=== PATIENT | female | born 1980 | race Caucasian/White ===

== ENCOUNTER 2023-10-27 16:05 | Outpatient (REF) | payer OTHER, SELFPAY ==
[2023-10-27 16:45] LABS: MANUAL DIFF FLAG NO
[2023-10-27 18:01] LABS: Basophils Absolute Auto 0.1 X10*3/uL (0.0-0.2); Basophils Percent Auto 1.1 % (0-2); Eosinophils Absolute Auto 0.4 X10*3/uL (0.0-0.4); Eosinophils Percent Auto 3.5 % (0-4); Hematocrit 38.8 % (37.0-47.0); Hemoglobin 12.4 g/dl (12.0-16.0); Imm Gran Abs Auto 0.04 X10*3/uL (0.00-0.03); Imm Gran Pct Auto 0.4 % (0.0-0.4); Lymphocytes Absolute Auto 2.1 X10*3/uL (1.2-4.9); Lymphocytes Percent Auto 20.4 % (20-40); Mean Corpuscular Hemoglobin 27.7 pg (27.0-33.0); Mean Corpuscular Volume 86.6 fL (80.0-98.0); Mean Platelet Volume 10.3 fL (9.4-12.3); Monocytes Absolute Auto 0.9 X10*3/uL (0.1-1.2); Monocytes Percent Auto 8.1 % (2-11); Neutrophils Percent Auto 66.5 % (45-73); Platelet Count 397 X10*3/uL (160-400); Red Blood Count 4.48 X10*6/uL (4.20-5.50); Red Cell Distribution Width 14.6 % (11.0-16.0); White Blood Count 10.5 X10*3/uL (4.8-10.8)
[2023-10-27 18:39] LABS: Alanine Aminotransferase 12 U/L (0-31); Albumin Level 4.4 g/dL (3.5-5.0); Alkaline Phosphatase 83 U/L (39-117); Aspartate Amino Transferase 14 U/L (5-31); Bilirubin Direct 0.3 mg/dL (0.0-0.5); Bilirubin Total 0.6 mg/dL (0.0-1.0); C Reactive Protein < 0.10 mg/dL (< or = 0.50); Lipase 27 U/L (8-78); Total Protein 7.4 g/dL (6.5-8.0)
[2023-10-27 18:46] LABS: Erythrocyte Sedimentation Rate 13 MM/HR (0-20)
== END 2023-10-27 16:06 | disposition home or self-care (01) ==
LOC: HO.LAB 16:05
PROVIDERS: PCP Internal Medicine; Visit Provider Internal Medicine Gastroenterology
DX: R10.11 Right upper quadrant pain (principal)
CPT/HCPCS: 36415; 80076; 83690; 85025; 85652; 86140

== ENCOUNTER 2023-11-04 08:27 | Outpatient (REF) | payer OTHER, SELFPAY ==
--- NOTE | ~2023-11-04 | US_ITS ---
EXAMINATION: US ABDOMEN COMPLETE CLINICAL INFORMATION: Right upper quadrant pain. COMPARISON: None available. TECHNIQUE: Real-time imaging of the abdominal viscera. FINDINGS: PANCREAS: Normal. ABDOMINAL AORTA: The proximal, mid, and distal segments are normal in caliber. INFERIOR VENA CAVA: Visualized portions are normal. LIVER: Normal. The liver is normal in size. The liver contour is normal. Parenchymal echogenicity is normal. No focal hepatic lesion. There is no intrahepatic biliary duct dilatation seen. GALLBLADDER: 6 mm mobile gallstone. No gallbladder wall thickening or pericholecystic fluid. The patient reported tenderness in the right upper quadrant during the examination. COMMON BILE DUCT: Normal in caliber measuring 0.2 cm in diameter. RIGHT KIDNEY: Normal. No hydronephrosis. No renal calculi or focal parenchymal lesions. The kidney measures 10.0 cm in maximum dimension. LEFT KIDNEY: Normal. No hydronephrosis. No renal calculi or focal parenchymal lesions. The kidney measures 9.9 cm in maximum dimension. SPLEEN: Normal. The spleen measures 8.2 cm in maximum dimension. FREE FLUID: None. US/US abdomen complete IMPRESSION: Cholelithiasis without gallbladder wall thickening or pericholecystic fluid. The patient reported tenderness in the right upper quadrant during the examination.
== END 2023-11-04 08:28 | disposition home or self-care (01) ==
LOC: HO.US 08:27
PROVIDERS: PCP Internal Medicine; Visit Provider Internal Medicine Gastroenterology
DX: R10.11 Right upper quadrant pain (principal)
CPT/HCPCS: 76700

== ENCOUNTER 2023-11-08 10:09 | Day surgery (SDC) | payer OTHER, SELFPAY ==
[2023-11-04 13:27] VITALS: BMI 29.3
--- NOTE | 2023-11-07 11:55 | HO.ANESPROP2 ---
HPI - Anesthesia Eval Consult details Narrative: 43yo F for Upper Endoscopy and Colonoscopy Hx colectomy, 2012 and 2019 [facility] Past Medical History Medical History (Updated 11/04/23 @ 13:26 by Hannah Hernandez RN) Anxiety Depression Headache Crohn disease Surgical History Surgical History (Updated 11/04/23 @ 13:25 by Hannah Hernandez, SUSHANT) Hx of section Hx of colonoscopy History of colostomy reversal Hx of colectomy Hx of colectomy Social History Social History (Updated 11/04/23 @ 13:27 by Hannah Hernandez RN) Household Members: Spouse Patient Tobacco Use Status: Never used Tobacco Meds Allergies Allergy/AdvReac Type Severity Reaction Status Date / Time terbutaline Allergy Shortness Verified 11/08/23 10:33 of Breath Home Medications ?Medication ?Instructions ?Recorded ?Confirmed ?Last Taken ?Type No Known Home Meds 11/04/23 11/04/23 Unknown History Exam Height,Weight and Vital Signs: Height 5 ft Weight 68.039 kg Assessment and Plan Assessment Anesthesia Assessment: Chart Reviewed
[2023-11-08 10:22] VITALS: BMI 29.7
[2023-11-08 10:28] LABS: UPreg QC Valid YES; Urine Pregnancy NEGATIVE (NEGATIVE)
--- NOTE | 2023-11-08 10:33 | HO.ANESPROP2 ---
[facility] Past Medical History Medical History (Updated 11/04/23 @ 13:26 by Hannah Hernandez RN) Anxiety Depression Headache Crohn disease Family History Family history of problems with anesthesia: No Surgical History Surgical History (Updated 11/04/23 @ 13:25 by Hannah Hernandez RN) Hx of section Hx of colonoscopy History of colostomy reversal Hx of colectomy Hx of colectomy History of Problems with Anesthesia: No Social History Social History (Updated 11/04/23 @ 13:27 by Hannah Hernandez RN) Household Members: Spouse Patient Tobacco Use Status: Never used Tobacco Use of substances other than those prescribed or required for medical reasons: No Are you DNR?: No Advance Directives: No Advance Directives Information Provided: Yes Meds Allergies Allergy/AdvReac Type Severity Reaction Status Date / Time terbutaline Allergy Shortness Verified 11/08/23 10:33 of Breath Active Medications: Current Medications Lactated Ringer's (Lr) 1,000 mls @ 100 mls/hr IVCONT .Q10H MATEO Home Medications ?Medication ?Instructions ?Recorded ?Confirmed ?Last Taken ?Type No Known Home Meds 11/04/23 11/04/23 Unknown History Exam Height,Weight and Vital Signs: Height 5 ft Weight 68.974 kg Pertinent Lab Results Pertinent Lab Results: Laboratory Tests 11/08/23 10:16 Urine Test NEGATIVE Airway Mallampati Class: II TM Dist: >3cm Neck ROM: Full Loose/Missing/Broken Teeth: No Heart: rrr Lungs: clear Assessment and Plan Final Anesthetic Review Family History of Problems with Anesthesia: No History of Problems with Anesthesia: No NPO: Yes ASA Class: II Final Preanesthetic Review: No Changes in Pt Med Stat Patient Risk: Low Procedure Risk: Low Anesthetic Plan Anesthetic Plan: MAC: Disposition: Standard PACU
[2023-11-08 10:35] VITALS: BP 150/88; PULSE 105; RESP 16; TEMP 36.8; O2SAT 97
--- NOTE | 2023-11-08 10:36 | MHC.SHP ---
Pre-Procedural Eval Section A - 24 Hr Update-Section A only Date of Service: 11/08/23 The patient is an INPATIENT: No Changes since office visit: No Cold of Flu in the past 2 weeks, No New Medical Problems, No Changes in Medication and No Patient answered all questions The patient has been examined within 24 hours of the surgical procedure. The History & Physical has been completed within 30 days and I have reviewed it.: Yes Section B - Complete if H&P > 30 days Chief Complaint: Crohn's disease of both small and large intestine Allergies: Allergies Allergy/AdvReac Type Severity Reaction Status Date / Time terbutaline Allergy Shortness Verified 11/08/23 10:33 of Breath Plan I have reviewed the history and physical and performed a pertinent physical examination on my patient. No changes have occurred unless specified. Time Spent With Patient Time: Total time managing care of this patient today ____ minutes.
[2023-11-08] MEDS: Lactated Ringers 1,000 ML 100 ML IVCONT (10:44)
[2023-11-08 11:37] VITALS: BP 106/71; PULSE 89; RESP 18; TEMP 36.8; O2SAT 99
[2023-11-08 11:52] VITALS: BP 119/84; PULSE 72; RESP 16; O2SAT 99
[2023-11-08] MEDS: ondansetron HCL 4 MG/2 ML VIAL IVPUSH (11:53)
[2023-11-08 12:07] VITALS: BP 122/76; PULSE 79; RESP 18; TEMP 36.4; O2SAT 100
--- NOTE | 2023-11-08 22:34 | OP_ITS ---
DATE OF SERVICE: 11/08/2023 SURGEON: Eran Harrell MD INDICATIONS: Crohn disease. PREOPERATIVE DIAGNOSIS: POSTOPERATIVE DIAGNOSIS: PROCEDURE PERFORMED: Upper endoscopy with biopsy, colonoscopy to the neoterminal ileum with biopsy. ESTIMATED BLOOD LOSS: COMPLICATIONS: ANESTHESIA: Monitored anesthesia care. ASSISTANTS: SPECIMENS: DESCRIPTION OF PROCEDURE: A history and physical was performed. The risks and benefits of the procedure were explained to the patient. Informed consent was obtained. The patient was placed in the left lateral decubitus position. The Olympus video gastroscope was introduced into the esophagus, stomach, and duodenum. Examination was performed. The scope was removed. She was repositioned for colonoscopy. A digital rectal exam was performed and was found to be normal. The Olympus pediatric video colonoscope was introduced into the rectum and advanced to the ileocolonic anastomosis. Examination was performed. The scope was removed. She tolerated both procedures well and was returned to the recovery area in stable condition. FINDINGS: Upper endoscopy: 1. Esophagus: The esophagus was normal. Biopsies were obtained from the EG junction. 2. Stomach: The stomach showed no evidence of masses, ulcers, or polyps. Antral biopsies were obtained to evaluate for H pylori. 3. Duodenum: The bulb and 2nd portion were normal. Colonoscopy: The neoterminal ileum appeared normal. There was 1 area of ulceration measuring approximately 8 x 10 mm at the ileocolonic anastomosis. The remainder of the ileum and colon appeared normal. Biopsies were obtained from the mucosa throughout the ileum and the colon. No polyps were identified. There was no evidence of active Crohn disease in the rectosigmoid. Retroflexed examination was normal. IMPRESSION: 1. Normal upper endoscopy. 2. Crohn disease. RECOMMENDATION: Follow up the biopsy results. MD ARA Mcginnis/MAKAYLA / [id number]
== END 2023-11-08 12:42 | disposition home or self-care (01) ==
PROVIDERS: Nurse Practitioner; PCP Internal Medicine; Visit Provider Internal Medicine Gastroenterology
PROC: (CPT 45380; principal; 2023-11-08 16:00)
DX: K50.812 Crohn's disease of both small and large intestine with intestinal obstruction (principal); Z90.49 Acquired absence of other specified parts of digestive tract; R10.11 Right upper quadrant pain; R51.9 Headache, unspecified; F32.A Depression, unspecified; F41.9 Anxiety disorder, unspecified
CPT/HCPCS: 45380; 43239; 81025; 88305; 88313; 88342; J2405; J2704